=== PATIENT | female | born 1955 | race Caucasian/White ===

== ENCOUNTER 2016-07-26 10:50 | Day surgery (SDC) | payer OTHER ==
[~2016-07-26] VITALS: Ht 160 cm; Wt 69.5 kg
[2016-07-26] VITALS (11 sets, daily range): BP systolic 109–126; BP diastolic 59–93; PULSE 99–108
[2016-07-26 11:53] LABS: PROTHROMBIN TIME 11.5 SECONDS (9.7-12.8)
[2016-07-26 11:57] LABS: MEAN CELL VOLUME 87 fl (80.0-100.0); MEAN CORPUSCULAR HGB CONC 32 g/dl (33.0-37.0); MEAN PLATELET VOLUME 11.7 fl (7.4-10.4); PLATELET COUNT 212 K/mm3 (130-400); RED BLOOD COUNT 3.77 M/mm3 (4.10-5.30); REDCELL DISTRIBUTION WIDTH-CV 14.3 % (11.5-14.5); WHITE BLOOD COUNT 10.2 K/mm3 (4.8-10.8)
[2016-07-26 12:01] LABS: HEMATOCRIT 32.7 % (37.0-47.0); HEMOGLOBIN 10.6 g/dl (12.5-16.0); MEAN CORPUSCULAR HEMOGLOBIN 28 pg (27.0-31.0)
[2016-07-26 12:08] LABS: CALCIUM 9.3 mg/dL (8.4-10.2); CREATININE, serum 0.9 mg/dL (0.52-1.25); POTASSIUM 3.5 mmol/L (3.4-5.0)
[2016-07-26] MEDS ORDERED: PRINZIDE 12.5 M1 TA1 PO (12:24)
[2016-07-26] MEDS ORDERED: 00186-0370-20 IH (12:24)
[2016-07-26] MEDS ORDERED: CADUET 10 MG-401 TAB PO (12:25)
[2016-07-26] MEDS ORDERED: MOBIC 7.5MG7.5 MG PO (12:25)
[2016-07-26] MEDS ORDERED: PLAVIX 75MG TAB75 MG PO (12:26)
[2016-07-26] MEDS ORDERED: FLEXERIL 1010 MG/TAB PO (12:27)
[2016-07-26] MEDS ORDERED: CATAPRES 0.1MG0.1 MG PO (12:27)
[2016-07-26] MEDS ORDERED: NORCO 325 MG-7.1 TAB PO (12:29)
[2016-07-26] MEDS ORDERED: XANAX 1MG1 MG PO (12:30)
[2016-07-26] MEDS ORDERED: SINGULAIR 110 MG/TAB PO (12:30)
[2016-07-26] MEDS ORDERED: PROTONIX 40MG T40 MG PO (12:31)
[2016-07-26] MEDS ORDERED: ASPIRIN 81M81 MG/TA2 PO (12:40)
[2016-07-26] MEDS ORDERED: BENADRYL25 M2 PO (12:40)
[2016-07-26] MEDS ORDERED: NORVASC 10MG10 MG PO (15:22)
[2016-07-26] MEDS ORDERED: LIPITOR 80MG80 MG PO (15:22)
== END 2016-07-26 17:30 | disposition home or self-care (01) ==
LOC: COL.CAR 10:50
PROVIDERS: Internal Medicine Interventional Cardiology
DX: I70.8 Atherosclerosis of other arteries (principal); I10 Essential (primary) hypertension; I20.9 Angina pectoris, unspecified; E78.5 Hyperlipidemia, unspecified; J44.9 Chronic obstructive pulmonary disease, unspecified; Z87.891 Personal history of nicotine dependence; Z82.49 Family history of ischemic heart disease and other diseases of the circulatory system
CPT/HCPCS: C1760; J2250; J3010